=== PATIENT | female | born 1990 | race Caucasian/White ===

== ENCOUNTER 2016-07-06 06:31 | Day surgery (SDC) | payer OTHER ==
[~2016-07-06] VITALS: Ht 154.9 cm; Wt 70.0 kg
[~2016-07-06 06:31] MED LIST: ADVIL200 MG PO; AMOXICILLIN500 M1 PO; AUGMENTIN875 MG PO; BENTYL10 MG PO; FLAGYL500 MG PO; FLEXERIL10 MG PO; FLEXERIL5 MG PO; HYDROCODON-ACE1 EAC7 PO; HYDROXYZINE HCL25 MG PO; KEFLEX500 MG PO; MOBIC7.5 MG PO; NAPROSYN500 MG PO; NOHOMEMEDS; PERCOCET 5/31 TABLET PO; PREDNISONE20 MG PO; PRENATAL TABLE1 EACH PO; VALIUM5 MG PO; VICODIN,LORT1 TABLET PO; ZOFRAN4 MG PO; ZOLOFT100 MG PO
[2016-07-06 07:07] VITALS: BP 101/59
[2016-07-06 10:14] LABS: INTERNAL CONTROL VALID? YES
[2016-07-06 10:21] VITALS: BP 98/53
== END 2016-07-06 11:28 | disposition home or self-care (01) ==
LOC: SDC 06:31
PROVIDERS: Obstetrics & Gynecology Gynecology
PROC: 0U574ZZ Destruction of Bilateral Fallopian Tubes, Percutaneous Endoscopic Approach (ICD-10-PCS; principal; 2016-07-06)
DX: Z30.2 Encounter for sterilization (principal); F17.200 Nicotine dependence, unspecified, uncomplicated
CPT/HCPCS: 84703; J0330; J0690; J1100; J1170; J1885; J2250; J2405; J2710; J2765; J3010

== ENCOUNTER 2017-06-03 08:12 | Emergency (ER) | payer OTHER ==
[~2017-06-03] VITALS: Ht 154.9 cm; Wt 70.3 kg
[2017-06-03 08:15] VITALS: BP 136/100
[2017-06-03] MEDS ORDERED: GABAPENTIN100 MG PO (11:57)
== END 2017-06-03 12:08 | disposition home or self-care (01) ==
LOC: EME 08:12
DX: G50.0 Trigeminal neuralgia (principal); F17.200 Nicotine dependence, unspecified, uncomplicated
CPT/HCPCS: 70450; 85651; 86140; 99281; 99284